=== PATIENT | female | born 1980 | race Caucasian/White ===

== ENCOUNTER 2021-11-24 14:26 | Emergency (ER) | payer OTHER ==
[~2021-11-24 14:26] MED LIST: IBUPROFEN600 MG PO; IBUPROFEN800 MG PO; OMNICEF 300 MG300 MG PO; ONDANSETRON ODT4 MG PO; ZITHROMAX250 MG PO; ZOFRAN ODT4 MG PO
== END 2021-11-24 18:22 | disposition home or self-care (01) ==
LOC: ER1 14:26
DX: U07.1 COVID-19 (principal); I10 Essential (primary) hypertension; Z90.710 Acquired absence of both cervix and uterus
CPT/HCPCS: 0240U; 99283

== ENCOUNTER 2022-06-05 10:47 | Emergency (ER) | payer OTHER ==
[~2022-06-05] VITALS: Ht 165.1 cm; Wt 77.1 kg
[2022-06-05 11:25] LABS: HEMOGLOBIN 14.4 gm/dl (12.3-15.3); RED BLOOD COUNT 4.42 M/UL (4.00-5.10); WHITE BLOOD COUNT 20.2 K/UL (4.5-11.0)
[2022-06-05 11:45] LABS: BUN/CREATININE RATIO 12 (0-10)
[2022-06-05] MEDS ORDERED: PROZAC10 MG PO (15:52)
[2022-06-05] MEDS ORDERED: AMLODIPINE BESY10 MG PO (15:52)
== END 2022-06-06 01:38 | disposition short-term general hospital (02) ==
LOC: ER1 10:47
PROVIDERS: Physician Assistant Medical
DX: A41.9 Sepsis, unspecified organism (principal); N10 Acute pyelonephritis; N15.1 Renal and perinephric abscess; F17.210 Nicotine dependence, cigarettes, uncomplicated; N28.9 Disorder of kidney and ureter, unspecified; I10 Essential (primary) hypertension; Z86.73 Personal history of transient ischemic attack (TIA), and cerebral infarction without residual deficits
CPT/HCPCS: 80053; 81001; 83605; 85025; 87040; 93005; 96361; 96374; 96375; 99285; J0696; J2270; J3370; J7030; J7040; Q9967